=== PATIENT | female | born 1945 | race Caucasian/White ===

== ENCOUNTER 2017-11-28 20:54 | Emergency (ER) | payer MEDICARE, OTHER ==
[2017-11-28 23:16] LABS: APPEARANCE,URINE SLIGHTLY-CLOUDY; BILIRUBIN,URINE NEGATIVE (NEGATIVE); COLOR,URINE YELLOW; GLUCOSE, URINE >=500 mg/dL (NEGATIVE); KETONES,URINE NEGATIVE (NEGATIVE); LEUKOCYTE ESTERASE,URINE LARGE (NEGATIVE); NITRITE,URINE NEGATIVE (NEGATIVE); PROTEIN,URINE NEGATIVE (NEGATIVE); URINE SPECIFIC GRAVITY 1.016; UROBILINOGEN,URINE NEGATIVE mg/dL (<2.0)
[2017-11-29] MEDS ORDERED: CEFTRIAXONE INJ 1000 MG VIAL IV ONE (00:07)
[2017-11-29] MEDS ORDERED: RINGERS SOLUTION,LACTATED 1,000 ML IV ONE (00:08)
--- NOTE | 2017-11-29 00:09 | ER Document Report ---
ED General - General Chief Complaint: Arm Pain Stated Complaint: ARM PAIN Time Seen by Provider: 11/28/17 22:42 Notes: Patient is a 72-year-old female with a past medical history of diabetes, hypertension, who presents with 24-48 hours of a progressive worsening erythema over her left upper extremity. She describes this area as a painful stinging, moderate to severe discomfort. She states that symptoms have worsened since onset. Nothing improves or worsens her symptoms. She denies a history of similar symptoms in the past. She has not seen her primary care doctor regarding today's concerns. She denies any associated fever or constitutional symptoms. No edema of the approximately. No history of DVTs. No injury to the extremity. TRAVEL OUTSIDE OF THE [place] IN LAST 30 DAYS: No - Related Data Allergies/Adverse Reactions: ciprofloxacin HCl [From Cipro] Allergy (Severe, Verified 11/28/17 20:56) Nausea levofloxacin [From Levaquin] Allergy (Severe, Verified 11/28/17 20:56) VOMITING spironolactone [Spironolactone] Allergy (Severe, Verified 11/28/17 20:56) vomiting/diarrhea terfenadine [From Seldane] Allergy (Severe, Verified 11/28/17 20:56) unsure codeine [Codeine] Allergy (Verified 11/28/17 20:56) unsure morphine [Morphine] Allergy (Verified 11/28/17 20:56) metformin Adverse Reaction (Severe, Verified 11/28/17 20:56) Diarrhea Past Medical History - General Information source: Patient - Social History Smoking Status: Never Smoker Chew tobacco use (# tins/day): No Frequency of alcohol use: None Drug Abuse: None Family History: Reviewed & Not Pertinent Patient has suicidal ideation: No Patient has homicidal ideation: No - Past Medical History Cardiac Medical History: Reports: Hx Hypercholesterolemia, Hx Hypertension - on lisinopril for kidney function Denies: Hx Coronary Artery Disease, Hx Heart Attack Pulmonary Medical History: Reports: Hx Asthma, Hx COPD, Hx Sleep Apnea Denies: Hx Bronchitis, Hx Pneumonia, Hx Tuberculosis Neurological Medical History: Denies: Hx Cerebrovascular Accident, Hx Seizures Endocrine Medical History: Reports: Hx Diabetes Mellitus Type 2 Renal/ Medical History: Denies: Hx Peritoneal Dialysis GI Medical History: Denies: Hx Hepatitis, Hx Hiatal Hernia, Hx Ulcer Musculoskeletal Medical History: Reports Hx Arthritis - minimal osteo Infectious Medical History: Denies: Hx Hepatitis Past Surgical History: Reports: Hx Cholecystectomy, Hx Hysterectomy, Hx Mastectomy - partial, lymph nodes, Hx Orthopedic Surgery - 2 knee replacement. Denies: Hx Open Heart Surgery, Hx Pacemaker - Immunizations Immunizations up to date: Yes Hx Diphtheria, Pertussis, Tetanus Vaccination: Yes Hx Pneumococcal Vaccination: 03/22/09 Review of Systems - Review of Systems Notes: Constitutional: Negative for fever. HENT: Negative for sore throat. Eyes: Negative for visual changes. Cardiovascular: Negative for chest pain. Respiratory: Negative for shortness of breath. Gastrointestinal: Negative for abdominal pain, vomiting or diarrhea. Genitourinary: Negative for dysuria. Musculoskeletal: Negative for back pain. Skin: Positive for rash. Neurological: Negative for headaches, weakness or numbness. 10 point ROS negative except as marked above and in HPI. Physical Exam - Vital signs Vitals: Temp Pulse Resp BP Pulse Ox 98.3 F 109 H 18 134/86 H 96 11/28/17 20:59 11/28/17 20:59 11/28/17 20:59 11/28/17 20:59 11/28/17 20:59 Interpretation: Tachycardic Notes: PHYSICAL EXAMINATION: GENERAL: Well-appearing, well-nourished and in no acute distress. HEAD: Atraumatic, normocephalic. EYES: Pupils equal round and reactive to light, extraocular movements intact, sclera anicteric, conjunctiva are normal. ENT: nares patent, oropharynx clear without exudates. Moist mucous membranes. NECK: Normal range of motion, supple without lymphadenopathy LUNGS: Breath sounds clear to auscultation bilaterally and equal. No wheezes rales or rhonchi. HEART: Regular rate and rhythm without murmurs ABDOMEN: Soft, nontender, normoactive bowel sounds. No guarding, no rebound. No masses appreciated. EXTREMITIES: Normal range of motion, no pitting or edema. No cyanosis. NEUROLOGICAL: No focal neurological deficits. Moves all extremities spontaneously and on command. PSYCH: Normal mood, normal affect. SKIN: Warm, Dry, normal turgor, there is erythema over the left forearm extending to the level just below the shoulder. No areas of induration or fluctuance. Course - Re-evaluation Re-evalutation: 11/29/17 00:09 Patient presents with a cellulitis that has spread over the most of the area of her left upper extremity most prominent over the left forearm now with streaking up almost to the level of her shoulder. Patient initially had some mild tachycardia which has since resolved without intervention. She has not had fever or constitutional symptoms at home. Given her advanced age will place an IV, give a dose of IV ceftriaxone, obtain labs, culture and then reassess. 11/29/17 02:58 CBC without leukocytosis. Patient remains hemodynamically within normal limits , no recurrence of tachycardia. She has completed a dose of IV ceftriaxone and a liter of fluids. I have emphasized with patient that given her age and history of diabetes as well as the degree of the cellulitis that she is a very low threshold to return the emergency department for fever, progression of the erythema, or constitutional symptoms. I have also strongly emphasized that I would like her to see her primary care doctor within the next 24 hours. She is comfortable with discharge home, has verbalized understanding of discharge instructions and return precautions. - Vital Signs Vital signs: Temp Pulse Resp BP Pulse Ox 98.3 F 109 H 18 134/86 H 96 11/28/17 20:59 11/28/17 20:59 11/28/17 20:59 11/28/17 20:59 11/28/17 20:59 - Laboratory Result Diagrams: 11/29/17 02:20 11/29/17 02:20 Laboratory results interpreted by me: 11/28/17 11/29/17 11/29/17 22:40 02:20 02:20 RBC 3.47 L Hgb 11.2 L Hct 32.0 L Sodium 133.0 L Creatinine 0.42 L Glucose 177 H Calcium 7.9 L Urine Glucose (UA) >=500 H Ur Leukocyte Esterase LARGE H Urine Ascorbic Acid 40 H Discharge - Discharge Clinical Impression: Left arm cellulitis Condition: Good Disposition: HOME, SELF-CARE Additional Instructions: The rash is likely due to infection of your skin. You need to take the antibiotics as prescribed. Do not stop even if the rash goes away until you have completed all the antibiotics. The area of redness was traced out here in the emergency department with a marking pen. You need to return to emergency department if the redness spreads outside of this area by more than 2 cm in any direction. You should also return if you develop fevers with temperature greater than 101, persistent vomiting, worsening pain, or have any other symptoms that are concerning to you. Prescriptions: Cephalexin Monohydrate [Keflex 500 mg Capsule] 500 mg PO Q6H 7 Days capsule
[2017-11-29 02:46] LABS: ABSOLUTE BASOPHILS # (AUTO) 0.1 10^3/uL (0.0-0.2); ABSOLUTE EOSINOPHILS # (AUTO) 0.2 10^3/uL (0.0-0.6); ABSOLUTE LYMPHOCYTES (AUTO) 1.4 10^3/uL (0.5-4.7); ABSOLUTE MONOCYTES (AUTO) 0.9 10^3/uL (0.1-1.4); ABSOLUTE NEUT (AUTO) 7.7 10^3/uL (1.7-8.2); BASOPHILS % (AUTO) 0.6 % (0-2); HEMOGLOBIN 11.2 g/dL (12.0-15.5); LYMPHOCYTES % (AUTO) 13.6 % (13-45); MEAN CORPUSCULAR HEMOGLOBIN 32.4 pg (27.0-33.4); MEAN CORPUSCULAR HGB CONC 35.1 g/dL (32.0-36.0); MEAN CORPUSCULAR VOLUME 92 fl (80-97); MONOCYTES % (AUTO) 8.7 % (3-13); PLATELET COUNT 202 10^3/uL (150-450); RED BLOOD COUNT 3.47 10^6/uL (3.72-5.28); RED CELL DISTRIBUTION WIDTH 12.4 % (11.5-14.0); SEGMENTED NEUTROPHILS % (AUTO) 75.1 % (42-78); TOTAL CELLS COUNTED % (AUTO) 100 %; WHITE BLOOD COUNT 10.3 10^3/uL (4.0-10.5)
[2017-11-29 02:50] LABS: ANION GAP 11 (5-19); BLOOD UREA NITROGEN 9 mg/dL (7-20); CALCIUM 7.9 mg/dL (8.4-10.2); CARBON DIOXIDE 22 mmol/L (22-30); CHLORIDE 100 mmol/L (98-107); GLUCOSE 177 mg/dL (75-110); POTASSIUM 3.9 mmol/L (3.6-5.0)
[2017-11-29 03:35] VITALS: BP 120/59
== END 2017-11-29 03:36 | disposition home or self-care (01) ==
LOC: ER 20:54
DX: L03.114 Cellulitis of left upper limb (principal); R00.0 Tachycardia, unspecified; E78.00 Pure hypercholesterolemia, unspecified; I10 Essential (primary) hypertension; E11.9 Type 2 diabetes mellitus without complications; Z90.49 Acquired absence of other specified parts of digestive tract; Z96.659 Presence of unspecified artificial knee joint; Z88.3 Allergy status to other anti-infective agents; Z88.6 Allergy status to analgesic agent
CPT/HCPCS: 99283; 96361; 96365; 36415; 87040; 85025; 80048; 81001; J0696; J7120

== ENCOUNTER → 2019-05-02 | Outpatient (CLI) | payer MEDICARE ==
--- NOTE | 2019-05-03 16:42 | RADIOLOGY REPORT (SQ) ---
EXAM DESCRIPTION: NM THYROID SCAN AND UPTAKE COMPLETED DATE/TIME: 05/03/2019 9:15 am REASON FOR STUDY: ABN THYROID US (R94.6) R94.6 ABNORMAL RESULTS OF THYROID FUNCTION STUDIES COMPARISON: None. RADIONUCLIDE AND DOSE: 325 microcuries I-123 The route of agent administration: Oral ADDITIONAL DRUGS AND DOSES: None. TECHNIQUE: Iodine uptake was measured at 4 and 24 hours. Images of the neck were acquired. LIMITATIONS: None. FINDINGS: 4 HOUR UPTAKE RADIO-IODINE: 4.3%. Normal Range of 5-20% [facility] Normal Range of 5-15% [facility] Normal Range of 5-15% [facility] 24 HOUR UPTAKE RADIO-IODINE: 18.3%. Normal Range of 7-35% [facility] Normal Range of 8-35% [facility] Normal Range of 15-30% [facility] SCAN: Homogeneous uptake of the radionuclide throughout both lobes of the gland and isthmus without a reas of increased or decreased activity. Normal size. OTHER: No other significant finding. IMPRESSION: NORMAL RADIONUCLIDE SCAN OF THYROID GLAND. NORMAL UPTAKE OF IODINE. TECHNICAL DOCUMENTATION: JOB ID: [id number] 2010 [employer]- All Rights Reserved Reading location - IP/workstation name: [email or web address]
== END ==
LOC: RAD 08:19
PROVIDERS: ATTEND Physician Assistant
DX: R94.6 Abnormal results of thyroid function studies (principal)
CPT/HCPCS: 78014; A9516

== ENCOUNTER → 2019-11-10 | Outpatient (CLI) | payer MEDICARE ==
--- NOTE | 2019-11-10 12:14 | ER RDC ASSESSMENT REPORT ---
Intake - In the Last 14 days Have you traveled outside [place]?: No Have you been in close contact with someone CONFIRMED: Yes Worked in Healthcare?: No - Symptoms Subjective Fever([place]urley feverish): No Chills: No Muscule Aches: No Runny Nose: No Sore Throat: No Cough (New or worsening chronic cough): No Shortness of breath: No Nausea or Vomiting: No Headache: No Abdominal Pain: No Diarrhea(3 or more loose stools in last 24 hours): No - Do you have any of the following Chronic lung disease: Asthma or emphysema or COPD: Yes Cystic Fibrosis: No Diabetes: Yes High Blood Pressure: No Cardiovascular Disease: Yes Chronic Kidney Disease: No Chronic Liver Disease: No Chronic blood disorder like Sickle Cell Disease: No Weak immune system due to disease or medication: No Neurologic condition that limits movement: No Developmental delay - Moderate to Severe: No Recent (within past 2 weeks) or current : No Morbid Obesity (>100 pounds over ideal weight): No - Objective Temperature: 98.3 F Pulse Rate: 86 Respiratory Rate: 17 Blood Pressure: 117/77 O2 Sat by Pulse Oximetry: 96 Objective: Given above, testing performed: covid Disposition: Home; Selfcare General - General Stated Complaint: covid screen only, asymptomatic Mode of Arrival: Ambulatory Information source: Patient - HPI Notes: Patient presents to clinic for COVID-19 testing after coming in close contact with another COVID 19 positive individual. Patient is asymptomatic beyond cough and diarrhea. However, the cough and diarrhea are related to chronic conditions and have not worsened in frequency or severity. They deny any shortness of breath, fever, chills, muscle aches, rhinorrhea, sore throat, nausea or vomiting, headache, abdominal pain. Patient has no acute medical concerns. - Related Data Allergies/Adverse Reactions: ciprofloxacin HCl [From Cipro] Allergy (Severe, Verified 11/28/17 20:56) Nausea levofloxacin [From Levaquin] Allergy (Severe, Verified 11/28/17 20:56) VOMITING spironolactone [Spironolactone] Allergy (Severe, Verified 11/28/17 20:56) vomiting/diarrhea terfenadine [From Seldane] Allergy (Severe, Verified 11/28/17 20:56) unsure codeine [Codeine] Allergy (Verified 11/28/17 20:56) unsure morphine [Morphine] Allergy (Verified 11/28/17 20:56) metformin Adverse Reaction (Severe, Verified 11/28/17 20:56) Diarrhea Home Medications: List unavailable Past Medical History - General Information source: Patient - Social History Smoking Status: Never Smoker Family History: Reviewed & Not Pertinent - Past Medical History Cardiac Medical History: Reports: Hx Hypercholesterolemia, Hx Hypertension - on lisinopril for kidney function Denies: Hx Coronary Artery Disease, Hx Heart Attack Pulmonary Medical History: Reports: Hx Asthma, Hx COPD, Hx Sleep Apnea Denies: Hx Bronchitis, Hx Pneumonia, Hx Tuberculosis EENT Medical History: Reports: None Neurological Medical History: Reports: None. Denies: Hx Cerebrovascular Accident, Hx Seizures Endocrine Medical History: Reports: Hx Diabetes Mellitus Type 2 Renal/ Medical History: Reports: None. Denies: Hx Peritoneal Dialysis Malignancy Medical History: Reports: None GI Medical History: Reports: None. Denies: Hx Hepatitis, Hx Hiatal Hernia, Hx Ulcer Musculoskeletal Medical History: Reports Hx Arthritis - minimal osteo Skin Medical History: Reports None Psychiatric Medical History: Reports: None Traumatic Medical History: Reports: None Infectious Medical History: Reports: None. Denies: Hx Hepatitis Past Surgical History: Reports: Hx Cholecystectomy, Hx Hysterectomy, Hx Mastectomy - partial, lymph nodes, Hx Orthopedic Surgery - 2 knee replacement. Denies: Hx Open Heart Surgery, Hx Pacemaker Physical Exam - General General appearance: Appears well, Alert In distress: None Notes: PHYSICAL EXAMINATION: GENERAL: Well-appearing and in no acute distress. HEAD: Atraumatic, normocephalic. EYES: sclera anicteric, conjunctiva are normal. ENT: nares patent. Moist mucous membranes. NECK: Normal range of motion, supple without lymphadenopathy. LUNGS: No increased work of breathing. Lung sounds CTAB and equal. No wheezes rales or rhonchi. HEART: Regular rate and rhythm without murmurs. ABDOMEN: Soft, nontender, normal bowel sounds, no guarding. EXTREMITIES: Normal range of motion, no pitting edema. No cyanosis. NEUROLOGICAL: A&O x 3. Normal speech. PSYCH: Normal mood, normal affect. SKIN: Warm, Dry, normal turgor, no rashes or lesions noted Patient Education/Counseling Counseling/Education: Patient presents for COVID 19 testing after close exposure to another person who has tested positive for COVID 19. Patient is asymptomatic at this time. Patient does not have emergency worrying symptoms such as difficulty breathing, shortness of breath, chest pain, pressure, confusion or cyanosis. Patient appears suitable for discharge as vital signs are stable and patient is nontoxic in appearance. Good return precautions have been discussed with patient, patient verbalized understanding and is agreeable with discharge plan of care at this time. Guidance for worsening S/SX: As a person under investigation for Covid 19, the [facility] of Health and Human Services, division of public health advises you to adhere to the following guidance until your test results are reported to you. If your test result is positive, you will receive additional information from your provider and your local health department at that time. Remain at home until you are cleared by the health provider or public health a uthorities. Keep a log of visitors to your home, notify any visitors to your home of your isolation status. If you plan to move to a new address or leave the county, notify the local health department in your County. Call your doctor or seek care if you have an urgent medical need. Before seeking medical care, call ahead to get instructions from the provider before arriving at the medical office clinic or hospital. Notify them that you are being tested for the virus that causes Covid 19 so that arrangements can be made, as necessary, to prevent transmission to others in the healthcare setting. Next, notify the local health department in your county. If a medical emergency arises and you need to call 911, inform the first responders that you are being tested for the virus that causes Covid 19. Next, notify the local health department in your county. RDC Discharge - Discharge Clinical Impression: Encounter for screening laboratory testing for COVID-19 virus in asymptomatic patient Condition: Good Disposition: Home; Selfcare
[2019-11-10 12:15] VITALS: BP 117/77
== END ==
LOC: RDC 11:18
PROVIDERS: ATTEND Registered Nurse
DX: Z03.818 Encounter for observation for suspected exposure to other biological agents ruled out (principal)
CPT/HCPCS: U0003; C9803; 87635; 99201; 99211

== ENCOUNTER 2020-02-07 07:56 | Day surgery (SDC) | payer MEDICARE ==
[~2020-02-07 07:56] MED LIST: LACTATED RINGERS 1000 ML IV PRN; LIDOCAINE 0.5% INJ-PF (5 MG/ML) 50 ML SDV SUBCUT PRN
[2020-02-07] MEDS ORDERED: PROPOFOL INJ 200 MG/20 ML VIAL IV ONE ×2 (07:57→10:41)
[2020-02-07] MEDS ORDERED: KETOROLAC TROMETHAMINE INJ/PF 30 MG/1 ML SDV ONE (11:10)
--- NOTE | 2020-02-07 11:35 | Discharge Summary ---
Discharge Summary (SDC) - Discharge Final Diagnosis: #1 internal hemorrhoids. 2. Small colon polyp at 40 cm. Date of Surgery: 02/07/20 Discharge Date: 02/07/20 Forms: Anesthesia D/C Instructions, Discharge POC-Surgical Service Treatment or Instructions: NO DRIVING TODAY ADVANCE DIET TOLERATED Discharge home. Diet as tolerated. Activity: Nonstrenuous. Follow-up with [place] [facility] in 3 weeks. 5% lidocaine ointment to rectum 3 times daily. Warm bathtub soaks 3 times daily and after bowel movements. [id number] ibuprofen for pain. Fiber/stool softeners twice daily. Referrals: KONSTANTIN DONOHUE MD [ACTIVE STAFF] - Discharge Diet: As Tolerated Respiratory Treatments at Home: Deep Breathing/Coughing Discharge Activity: Balance Activity w/Rest, No Driving Home Care Assistance: None Needed Report the Following to Your Physician Immediately: Shortness of Breath, Nausea, Vomiting, Increase in Pain, Fever over 101 Degrees, Unusual Bleeding, IV Site Infection Signs
[2020-02-07 11:37] VITALS: BP 116/70
--- NOTE | 2020-02-07 11:39 | Operative Report ---
Nonrecallable Operative Report DATE OF SURGERY: 02/07/20 PREOPERATIVE DIAGNOSIS: Rectal bleeding POSTOPERATIVE DIAGNOSIS: 1. Internal hemorrhoids. 2. Large sigmoid diverticulosis, without signs of diverticulitis. 3. Colon polyp at 40 cm. OPERATION: 1. Colonoscopy to the cecum. 2. Hot biopsy of small colon polyp at 40 cm. 3. Rubber band ligation of internal hemorrhoids x4. SURGEON: KONSTANTIN DONOHUE ANESTHESIA: LMAC TISSUE REMOVED OR ALTERED: Colon polyp at 40 cm. COMPLICATIONS: None apparent ESTIMATED BLOOD LOSS: Minimal PROCEDURE: Drains/implants: None. Procedure in detail: After informed consent was obtained, the patient was brought into the operating room and laid in the left lateral decubitus position. The endoscope was inserted into the rectum. It was passed up the rectum, sigmoid colon, descending colon, across the transverse colon, down the ascending colon, and into the cecum. The ileocecal valve and appendiceal orifice were identified. The scope was then withdrawn, circumferentially noting the mucosa. The prep was fair. The patient had a moderate amount of solid and liquid stool within the colon. This was irrigated and suctioned. I do believe the scope was adequate as a screening examination. The scope was withdrawn, circumferentially noting the mucosa. The scope was pulled back past the ascending colon, transverse colon, down the descending colon, and into the sigmoid colon. Within the sigmoid colon there were large diverticula throughout, without signs of diverticulitis. At approximately 40 cm, a small polyp was identified. It was removed in its entirety using hot biopsy forceps. The scope was then withdrawn down into the rectum. A retroflexion maneuver was performed in the rectum noting small to moderate size internal hemorrhoids. The scope was then straightened, air was suctioned from the rectum, the scope was removed, and this portion of the procedure was concluded. Attention was then turned to ligation of the internal hemorrhoids. The Hill- Huang retractor was inserted into the rectum. There were enlarged hemorrhoids in all 3 hemorrhoid columns. 4 hemorrhoid bands were then placed on the hemorrhoids, circumferentially. After this was completed, the Hill-Huang retractor was removed, and the procedure was concluded. All sponge, instrument, and needle counts were correct x2. Condition: Stable.
== END 2020-02-07 11:58 | disposition home or self-care (01) ==
LOC: END 07:56
PROVIDERS: ATTEND Surgery
DX: K57.30 Diverticulosis of large intestine without perforation or abscess without bleeding (principal); K64.8 Other hemorrhoids; D12.6 Benign neoplasm of colon, unspecified; G47.30 Sleep apnea, unspecified; M81.0 Age-related osteoporosis without current pathological fracture; E11.9 Type 2 diabetes mellitus without complications; Z79.4 Long term (current) use of insulin; Z86.010 Personal history of colon polyps; Z85.3 Personal history of malignant neoplasm of breast; Z90.12 Acquired absence of left breast and nipple; Z20.828 Contact with and (suspected) exposure to other viral communicable diseases; Z90.49 Acquired absence of other specified parts of digestive tract; M19.90 Unspecified osteoarthritis, unspecified site; J45.909 Unspecified asthma, uncomplicated; E66.9 Obesity, unspecified; Z86.73 Personal history of transient ischemic attack (TIA), and cerebral infarction without residual deficits
CPT/HCPCS: 45384; 46221; 82962; 88305 ×2; U0003; J1885; J2704; C9803; 811; 87635

== ENCOUNTER → 2020-02-12 | Outpatient (CLI) | payer MEDICARE ==
--- NOTE | 2020-02-13 09:56 | RADIOLOGY REPORT (SQ) ---
EXAM DESCRIPTION: CT RT LOWER EXTREMITY WITHOUT IMAGES COMPLETED DATE/TIME: 02/12/2020 10:36 am REASON FOR STUDY: M25.561 PAIN IN RIGHT KNEE COMPARISON: None. TECHNIQUE: Axial imaging performed through the Right knee with reformatted coronal and sagittal imaging windowed for bone and soft tissues. Images saved to PAC S. 3D IMAGING: Were 3D images as MIP, SSD, or volume rendering performed at the work station? No LIMITATIONS: Metal artifact. FINDINGS: SOFT TISSUES: No obvious swelling or foreign body. BONY STRUCTURES: Intact total knee arthroplasty. No evidence of loosening or infection. MINERALIZATION: Normal. OTHER: No other significant finding. IMPRESSION: Intact knee arthroplasty. Reading location - IP/workstation name: [email or web address]
== END ==
LOC: RAD 09:56
PROVIDERS: ATTEND Physician Assistant
DX: M25.561 Pain in right knee (principal)